=== PATIENT | female | born 1975 | race Two or more races ===

== ENCOUNTER 2017-11-09 02:05 | Emergency (ER) | payer MEDICAID ==
[~2017-11-09] VITALS: Ht 167.6 cm; Wt 80.3 kg
[2017-11-09] MEDS ORDERED: ALBUTEROL SULFATE 2.5 MG/3 ML NEBU NEB ONE (03:00)
[2017-11-09] MEDS ORDERED: ALBUTEROL SULFATE 2.5 MG/3 ML NEBU ONE (03:09)
[2017-11-09 03:34] LABS: BASOPHILS # (AUTO) 0.1 K/uL (0.0-8.0); BASOPHILS % (AUTO) 1.1 % (0.0-2.0); EOSINOPHILS # (AUTO) 0.1 K/uL (0.0-0.7); EOSINOPHILS % (AUTO) 2.2 % (0.0-7.0); HEMATOCRIT 34.5 % (31.2-41.9); HEMOGLOBIN 11.8 g/dL (10.9-14.3); LYMPHOCYTES # (AUTO) 3.3 K/uL (20.0-40.0); LYMPHOCYTES % (AUTO) 50.7 % (20.5-51.5); MEAN CORPUSCULAR HEMOGLOBIN 30.4 uug (24.7-32.8); MEAN CORPUSCULAR HGB CONC 34 g/dL (32.3-35.6); MEAN CORPUSCULAR VOLUME 88.7 fL (75.5-95.3); MONOCYTES # (AUTO) 0.7 K/uL (2.0-10.0); MONOCYTES % (AUTO) 10.3 % (0.0-11.0); NEUTROPHILS # (AUTO) 2.3 K/uL (1.8-8.9); NEUTROPHILS % (AUTO) 35.7 % (38.5-71.5); PLATELET COUNT (AUTO) 283 K/uL (179-408); RED BLOOD CELL COUNT(AUTO) 3.89 MIL/uL (3.63-4.92); WHITE BLOOD COUNT (AUTO) 6.4 K/uL (3.8-11.8)
[2017-11-09 04:07] LABS: CARBON DIOXIDE 28 mmol/L (21-32); CHLORIDE 107 mmol/L (98-107); CREATININE 0.7 mg/dL (0.6-1.3); GLUCOSE 80 mg/dL (74-106); POTASSIUM 3.9 mmol/L (3.5-5.1); UREA NITROGEN, BLOOD 11 mg/dL (7-18)
[2017-11-09 04:13] LABS: ALANINE AMINOTRANSFERASE 24 U/L (14-59); ALKALINE PHOSPHATASE 53 U/L (50-136); ASPARTATE AMINOTRANSFERASE 21 U/L (15-37); BILIRUBIN,DIRECT < 0.1 mg/dL (0.0-0.2); BILIRUBIN,TOTAL 0.3 mg/dL (0.2-1.0); TOTAL PROTEIN, SERUM 6.7 g/dL (6.4-8.2)
--- NOTE | 2017-11-09 04:30 | NUR ---
Patient discharged to home in stable conditon. Written and verbal after care instructions given. Patient verbalizes understanding of instructions. Patient reported having less difficulties breathing prior to discharge. Patient able to ambulate unassisted with steady gait. Patient left with personal belongings.
[2017-11-09 04:37] VITALS: BP 113/73
== END 2017-11-09 04:30 | disposition home or self-care (01) ==
LOC: ER 02:19
DX: J20.9 Acute bronchitis, unspecified (principal); Z91.040 Latex allergy status; Z88.0 Allergy status to penicillin
CPT/HCPCS: 36415; 71045; 84703; 85025; 85730; 93005; A4663

== ENCOUNTER 2018-09-28 14:56 | Emergency (ER) | payer MEDICAID ==
[~2018-09-28] VITALS: Ht 167.6 cm; Wt 79.4 kg
[2018-09-28 15:40] LABS: BASOPHILS # (AUTO) 0.1 K/uL (0.0-8.0); BASOPHILS % (AUTO) 0.7 % (0.0-2.0); EOSINOPHILS # (AUTO) 0.2 K/uL (0.0-0.7); EOSINOPHILS % (AUTO) 1.9 % (0.0-7.0); HEMATOCRIT 36.8 % (31.2-41.9); HEMOGLOBIN 12.2 g/dL (10.9-14.3); LYMPHOCYTES # (AUTO) 2.1 K/uL (20.0-40.0); LYMPHOCYTES % (AUTO) 23.9 % (20.5-51.5); MEAN CORPUSCULAR HEMOGLOBIN 29.4 uug (24.7-32.8); MEAN CORPUSCULAR HGB CONC 33 g/dL (32.3-35.6); MEAN CORPUSCULAR VOLUME 88.3 fL (75.5-95.3); MONOCYTES # (AUTO) 0.9 K/uL (2.0-10.0); MONOCYTES % (AUTO) 10.6 % (0.0-11.0); NEUTROPHILS # (AUTO) 5.5 K/uL (1.8-8.9); NEUTROPHILS % (AUTO) 62.9 % (38.5-71.5); PLATELET COUNT (AUTO) 254 K/uL (179-408); RED BLOOD CELL COUNT(AUTO) 4.16 MIL/uL (3.63-4.92); WHITE BLOOD COUNT (AUTO) 8.7 K/uL (3.8-11.8)
[2018-09-28 15:46] LABS: CREATININE 0.6 mg/dL (0.6-1.3); POTASSIUM 4.2 mmol/L (3.5-5.1)
--- NOTE | 2018-09-28 16:40 | NUR ---
Patient discharged to home in stable conditon. Written and verbal after care instructions given. Patient verbalizes understanding of instructions.PT SAYS FEELS BETTER. PT ACCOMPANIED BY FAMILY MEMBER.
[2018-09-28 17:37] VITALS: BP 103/69
== END 2018-09-28 17:38 | disposition home or self-care (01) ==
LOC: ER 14:56
DX: R07.89 Other chest pain (principal); R53.1 Weakness; Z90.49 Acquired absence of other specified parts of digestive tract; Z88.0 Allergy status to penicillin; Z91.040 Latex allergy status
CPT/HCPCS: 36415; 70030-TC; 71045; 85025; 93005; A4663

== ENCOUNTER 2019-04-27 20:21 | Emergency (ER) | payer MEDICAID ==
[~2019-04-27] VITALS: Ht 170.2 cm; Wt 79.8 kg
--- NOTE | 2019-04-27 20:41 | NUR ---
Patient arrived at the ER with chief complaint of lower back pain radiating to left leg and left upper back for 2 days. Patient reported taken Naproxen around 5pm but not effective. No cardiopulmonary concern. No /GI concern.
--- NOTE | 2019-04-27 21:00 | NUR ---
Dr. Benton on bedside for MSE.
[2019-04-27] MEDS ORDERED: DEXAMETHASONE SOD PHOSPHATE 4 MG INJ ONE (21:11)
[2019-04-27] MEDS ORDERED: HYDROMORPHONE 1 MG/1 ML DISP.SYRIN ONE (21:11)
[2019-04-27] MEDS ORDERED: ONDANSETRON 4 MG/2 ML VIAL ONE ×2 (21:11→22:25)
[2019-04-27] MEDS ORDERED: ONDANSETRON 4 MG/2 ML VIAL IM ONE (21:15)
[2019-04-27] MEDS ORDERED: HYDROMORPHONE 1 MG/1 ML DISP.SYRIN IM ONE (21:15)
[2019-04-27] MEDS ORDERED: DEXAMETHASONE SOD PHOSPHATE 4 MG INJ IM ONE (21:15)
--- NOTE | 2019-04-27 21:40 | NUR ---
Dr. Benton on bedside.
--- NOTE | 2019-04-27 21:49 | NUR ---
Dr. Benton on bedside.
[2019-04-27] MEDS ORDERED: IV NORMAL SALINE 1000 ML BAG IV ONE (22:15)
[2019-04-27] MEDS ORDERED: ONDANSETRON 4 MG/2 ML VIAL IV ONE (22:15)
[2019-04-27] MEDS ORDERED: MORPHINE SULFATE 2 MG/1 ML DISP.SYRIN IV ONE (22:15)
[2019-04-27] MEDS ORDERED: MORPHINE SULFATE 2 MG/1 ML DISP.SYRIN ONE (22:26)
[2019-04-27 22:29] LABS: BASOPHILS # (AUTO) 0.1 K/uL (0.0-8.0); EOSINOPHILS # (AUTO) 0.2 K/uL (0.0-0.7); EOSINOPHILS % (AUTO) 3.1 % (0.0-7.0); HEMATOCRIT 33.3 % (31.2-41.9); HEMOGLOBIN 10.9 g/dL (10.9-14.3); LYMPHOCYTES # (AUTO) 2.9 K/uL (20.0-40.0); LYMPHOCYTES % (AUTO) 48.4 % (20.5-51.5); MEAN CORPUSCULAR HEMOGLOBIN 28.5 uug (24.7-32.8); MEAN CORPUSCULAR HGB CONC 33 g/dL (32.3-35.6); MEAN CORPUSCULAR VOLUME 86.5 fL (75.5-95.3); MONOCYTES # (AUTO) 0.6 K/uL (2.0-10.0); MONOCYTES % (AUTO) 9.6 % (0.0-11.0); NEUTROPHILS # (AUTO) 2.2 K/uL (1.8-8.9); NEUTROPHILS % (AUTO) 37.9 % (38.5-71.5); PLATELET COUNT (AUTO) 255 K/uL (179-408); RED BLOOD CELL COUNT(AUTO) 3.84 MIL/uL (3.63-4.92); WHITE BLOOD COUNT (AUTO) 5.9 K/uL (3.8-11.8)
[2019-04-27 22:33] LABS: CREATININE 0.7 mg/dL (0.6-1.3); POTASSIUM 4.3 mmol/L (3.5-5.1)
[2019-04-27 22:39] LABS: BILIRUBIN,TOTAL 0.2 mg/dL (0.2-1.0); TOTAL PROTEIN, SERUM 6.7 g/dL (6.4-8.2)
--- NOTE | 2019-04-27 23:28 | NUR ---
PATIENT BACK FROM CT. NOTED NOT IN ANY DISTRESS.
--- NOTE | 2019-04-28 00:09 | NUR ---
Dr. Benton on bedside.
[2019-04-28 00:40] VITALS: BP 120/86
--- NOTE | 2019-04-28 00:48 | NUR ---
Patient discharged to home in stable conditon. Written and verbal after care instructions given. Patient verbalizes understanding of instructions. Pt ambulated out of the ER with steady gait. All belongings with pt.
== END 2019-04-28 00:48 | disposition home or self-care (01) ==
LOC: ER 20:21
DX: M54.42 Lumbago with sciatica, left side (principal); Z88.0 Allergy status to penicillin; Z91.040 Latex allergy status; Z91.048 Other nonmedicinal substance allergy status
CPT/HCPCS: 36415; 72125; 74176; 80053; 84702; 85025; 96372 ×3; 96374; 96375; 99284; J1100; J1170; J2270; J2405 ×2; A4663; J7030

== ENCOUNTER 2019-07-26 14:44 | Emergency (ER) | payer MEDICAID ==
[~2019-07-26] VITALS: Ht 167.6 cm; Wt 79.4 kg
[2019-07-26 15:18] LABS: BASOPHILS # (AUTO) 0.1 K/uL (0.0-8.0); BASOPHILS % (AUTO) 0.8 % (0.0-2.0); EOSINOPHILS # (AUTO) 0.6 K/uL (0.0-0.7); HEMOGLOBIN 11.6 g/dL (10.9-14.3); LYMPHOCYTES # (AUTO) 2.4 K/uL (20.0-40.0); LYMPHOCYTES % (AUTO) 24.8 % (20.5-51.5); MEAN CORPUSCULAR HEMOGLOBIN 28.4 uug (24.7-32.8); MEAN CORPUSCULAR HGB CONC 33 g/dL (32.3-35.6); MEAN CORPUSCULAR VOLUME 85.8 fL (75.5-95.3); MONOCYTES # (AUTO) 0.9 K/uL (2.0-10.0); MONOCYTES % (AUTO) 9.5 % (0.0-11.0); NEUTROPHILS # (AUTO) 5.6 K/uL (1.8-8.9); NEUTROPHILS % (AUTO) 58.9 % (38.5-71.5); PLATELET COUNT (AUTO) 311 K/uL (179-408); RED BLOOD CELL COUNT(AUTO) 4.08 MIL/uL (3.63-4.92); WHITE BLOOD COUNT (AUTO) 9.6 K/uL (3.8-11.8)
[2019-07-26 15:40] LABS: THYROID STIMULATING HORMONE 1.543 mIU/mL (0.358-3.740)
[2019-07-26 15:57] LABS: *BILIRUBIN,URIN NEGATIVE (NEGATIVE); *BLOOD, URINE NEGATIVE (NEGATIVE); *CLARITY,URINE CLEAR (CLEAR); *COLOR,URINE YELLOW (YELLOW); *KETONES,URINE NEGATIVE (NEGATIVE); *UROBILINOGEN,URINE 0.2 E.U./dl (NORMAL); LEUKOCYTE ESTERASE ,URINE NEGATIVE (NEGATIVE); NITRITE, URINE POSITIVE (NEGATIVE); UGLUCOSE NEGATIVE (NEGATIVE)
[2019-07-26] MEDS ORDERED: AZITHROMYCIN 250 MG TABLET ONE (16:00)
[2019-07-26] MEDS ORDERED: AZITHROMYCIN 250 MG TABLET PO ONE (16:00)
[2019-07-26 16:11] LABS: BACTERIA,URINE MANY /HPF (NONE SEEN); RBC,URINE 0-3 /HPF (0-3)
[2019-07-26 16:12] LABS: SQUAMOUS EPITHELIAL CELL,UR MODERATE /HPF (NONE SEEN)
[2019-07-26 16:13] LABS: CREATININE 0.8 mg/dL (0.6-1.3); POTASSIUM 3.9 mmol/L (3.5-5.1)
--- NOTE | 2019-07-26 16:19 | NUR ---
Patient discharged to home in stable conditon. Written and verbal after care instructions given. Patient verbalizes understanding of instructions.pt walks in steady gait. pt with
== END 2019-07-26 16:22 | disposition home or self-care (01) ==
LOC: ER 14:44
DX: J32.9 Chronic sinusitis, unspecified (principal); Z88.0 Allergy status to penicillin; Z91.040 Latex allergy status; Z91.048 Other nonmedicinal substance allergy status
CPT/HCPCS: 36415; 84443; 85025; 87086; A4663; Q0144

== ENCOUNTER 2020-02-04 20:50 | Emergency (ER) | payer MEDICAID ==
[~2020-02-04] VITALS: Ht 167.6 cm; Wt 85.3 kg
--- NOTE | 2020-02-04 21:20 | NUR ---
Patient ambulated with stable gait. A/Ox4. Patient came for c/o chest pressure and muscle spasms. Speech is clear, speaks in complete sentencs. No acute neuro deficits at this time. Respiratory even and unlabored, denies any sob, cough. Denies any n/v/d. Patient in bed at lowest position, sr upx2, call light within reach. Safety precautions implemented per protocol.
[2020-02-04 21:54] LABS: BASOPHILS # (AUTO) 0.1 K/uL (0.0-8.0); BASOPHILS % (AUTO) 0.8 % (0.0-2.0); EOSINOPHILS # (AUTO) 0.4 K/uL (0.0-0.7); EOSINOPHILS % (AUTO) 5.2 % (0.0-7.0); HEMATOCRIT 30.7 % (31.2-41.9); HEMOGLOBIN 9.9 g/dL (10.9-14.3); LYMPHOCYTES # (AUTO) 2.9 K/uL (20.0-40.0); MEAN CORPUSCULAR HEMOGLOBIN 25.9 uug (24.7-32.8); MEAN CORPUSCULAR HGB CONC 32 g/dL (32.3-35.6); MEAN CORPUSCULAR VOLUME 80.6 fL (75.5-95.3); MONOCYTES # (AUTO) 0.9 K/uL (2.0-10.0); MONOCYTES % (AUTO) 12.7 % (0.0-11.0); NEUTROPHILS # (AUTO) 3.1 K/uL (1.8-8.9); NEUTROPHILS % (AUTO) 42.3 % (38.5-71.5); PLATELET COUNT (AUTO) 344 K/uL (179-408); RED BLOOD CELL COUNT(AUTO) 3.81 MIL/uL (3.63-4.92); WHITE BLOOD COUNT (AUTO) 7.4 K/uL (3.8-11.8)
[2020-02-04 22:02] LABS: CREATININE 0.7 mg/dL (0.6-1.3); POTASSIUM 4.1 mmol/L (3.5-5.1)
[2020-02-04 22:09] LABS: BILIRUBIN,DIRECT 0.1 mg/dL (0.0-0.2); BILIRUBIN,TOTAL 0.2 mg/dL (0.2-1.0); TOTAL PROTEIN, SERUM 6.6 g/dL (6.4-8.2)
[2020-02-04 22:35] LABS: THYROID STIMULATING HORMONE 3.203 mIU/mL (0.358-3.740)
[2020-02-04] MEDS ORDERED: IV NORMAL SALINE 250 ML IV ONE (22:55)
[2020-02-04] MEDS ORDERED: IOHEXOL 350 100 ML INFUS..BTL ONE (22:55)
[2020-02-04] MEDS ORDERED: SWABABLE VALVE TRANSFER SET EA MC ONE (22:55)
--- NOTE | 2020-02-05 | NUR ---
Patient in bed at lowest position, sr upx2, call light within reach. No acute distress noted at this time, VSS.
--- NOTE | 2020-02-05 01:46 | NUR ---
Patient discharged to home in stable condition. Written and verbal after care instructions given. Patient verbalizes understanding of instructions. Stressed follow up or return to ER for worsening s/s. IV removed. Catheter intact and site benign. Pressure and 4x4 gauze applied to site. No bleeding noted. Patient ambulated with stable gait.
[2020-02-05 01:47] VITALS: BP 121/75
== END 2020-02-05 01:48 | disposition home or self-care (01) ==
LOC: ER 20:51
DX: R07.89 Other chest pain (principal); D64.9 Anemia, unspecified; Z90.49 Acquired absence of other specified parts of digestive tract; K44.9 Diaphragmatic hernia without obstruction or gangrene; Z98.84 Bariatric surgery status; Z88.0 Allergy status to penicillin; Z91.040 Latex allergy status
CPT/HCPCS: 36415 ×2; 71045; 71275; 80048; 80076; 84443; 84484 ×2; 84702; 85025; 85379; 85730; 93005 ×2; 99285; Q9967; 70030-TC; A4663; J7050